=== PATIENT | female | born 1990 | race African-American/Black ===

== ENCOUNTER 2016-06-24 19:07 | Emergency (ER) | payer OTHER ==
[~2016-06-24] VITALS: Ht 154.9 cm; Wt 71.2 kg
[~2016-06-24 19:07] MED LIST: ADVAIR 100-501 EACH INH; ADVAIR 250-501 EACH IH; ALBUTEROL INH; CIPRO500 MG PO; CIPROFLOXACIN250 M2 OR; DEPO-PROVER150 MG/M1 IM; IBUPROFEN 800800 M1 PO; KEFLEX500 MG PO; LOESTRIN1 EAC1 PO; LORTABELXR PO; LUTERA1 EACH PO; PREDNISONE 20 M20 MG PO; PROVENTIL HFA6.7 G1 INH; UNKNOWN ANTIBIOTIC; VENTOLIN HFA 1818 GM INH; ZANTAC 150MG T150 MG PO; ZOFRAN ODT4 MG PO; ZOFRAN4 MG PO; ZPAK PO
[2016-06-24] MEDS ORDERED: MICROGESTIN 241 EACH PO (19:22)
[2016-06-24 19:41] LABS: HEMATOCRIT 40.3 % (37.0-47.0); HEMOGLOBIN 13.5 gm/dL (12.0-15.0); MCH 30.8 pg (26.0-34.0); MCHC 33.5 % (28.0-37.0); MCV 92.1 fL (80.0-100.0); PLATELET COUNT 329 thou/uL (150-400); RBC 4.37 mil/uL (4.20-5.00); RDW 13.3 % (10.5-14.5); WBC 13.7 thou/uL (4.0-11.0)
[2016-06-24 19:42] LABS: MANUAL DIFF YES
[2016-06-24 19:50] LABS: POTASSIUM 3.5 mmol/L (3.5-5.1)
[2016-06-24 20:06] LABS: ABSOLUTE NEUTROPHILS 11.4 thou/uL (1.4-8.2); TOTAL CELL COUNT 100
[2016-06-24 20:40] LABS: URINE BILIRUBIN NEGATIVE (Negative); URINE BLOOD 3+ (Negative); URINE COLOR YELLOW; URINE GLUCOSE-RANDOM* NEGATIVE (Negative); URINE KETONES NEGATIVE (Negative); URINE LEUKOCYTES-REFLEX TRACE (Negative); URINE PROTEIN (DIPSTICK) NEGATIVE (Negative); URINE UROBILINOGEN 0.2 E.U./dl (0.2-1.0)
[2016-06-24 20:47] LABS: CASTS None Seen /LPF (None Seen); SQUAMOUS 4-10 Moderate /LPF (0-3); URINE RBC 0-2 Rare /HPF (0-2); URINE WBC-REFLEX 0-5 Rare /HPF (0-5)
[2016-06-24 20:48] LABS: CRYSTALS None Seen /LPF (None Seen)
[2016-06-24] MEDS ORDERED: FLAGYL500 MG PO (21:25)
[2016-06-24] MEDS ORDERED: BENTYL 20 MG TA20 M1 PO (21:27)
[2016-06-24 21:42] VITALS: BP 116/71
[2016-06-27 13:07] LABS: CHLAMYDIA TRACHOMATIS-PCR Negative (Negative); NEISSERIA GONORRHEA-PCR Negative (Negative)
== END 2016-06-24 21:46 | disposition home or self-care (01) ==
LOC: ER 19:07
PROVIDERS: Physician Assistant
DX: N93.8 Other specified abnormal uterine and vaginal bleeding (principal); A59.9 Trichomoniasis, unspecified; J45.909 Unspecified asthma, uncomplicated; Z88.8 Allergy status to other drugs, medicaments and biological substances

== ENCOUNTER 2017-11-11 13:29 | Emergency (ER) | payer OTHER ==
[~2017-11-11] VITALS: Ht 154.9 cm; Wt 65.8 kg
[~2017-11-11 13:29] MED LIST changes: +BENTYL 20 MG TA20 M1 PO; +FLAGYL500 MG PO; +MICROGESTIN 241 EACH PO
[2017-11-11 14:31] LABS: URINE BILIRUBIN NEGATIVE (Negative); URINE BLOOD 1+ (Negative); URINE CLARITY HAZY; URINE COLOR YELLOW; URINE GLUCOSE-RANDOM* NEGATIVE (Negative); URINE KETONES NEGATIVE (Negative); URINE LEUKOCYTES 3+ (Negative); URINE NITRITE NEGATIVE (Negative); URINE PROTEIN (DIPSTICK) NEGATIVE (Negative); URINE SPECIFIC GRAVITY >= 1.030 (1.005-1.035); URINE UROBILINOGEN 0.2 E.U./dl (0.2-1.0)
[2017-11-11 14:39] LABS: SQUAMOUS >10 Many /LPF (0-3); URINE WBC >25 Many /HPF (0-5)
[2017-11-11 14:40] LABS: BACTERIA 1-9 Few /HPF (None Seen); CASTS None Seen /LPF (None Seen); URINE RBC 3-10 Few /HPF (0-2)
[2017-11-11 14:41] LABS: CRYSTALS None Seen /LPF (None Seen); MUCUS 4-6 Moderate strn/LPF (None Seen)
[2017-11-11] MEDS ORDERED: METROGEL-VAGINA70 GM VAG (16:04)
[2017-11-11 16:46] VITALS: BP 120/78
[2017-11-13 14:13] LABS: NEISSERIA GONORRHEA-PCR Negative (Negative)
== END 2017-11-11 16:47 | disposition home or self-care (01) ==
LOC: ER 13:29
PROVIDERS: Nurse Practitioner Family
DX: N76.0 Acute vaginitis (principal); J45.909 Unspecified asthma, uncomplicated; Z88.8 Allergy status to other drugs, medicaments and biological substances

== ENCOUNTER 2018-03-12 09:03 | Emergency (ER) | payer OTHER ==
[~2018-03-12] VITALS: Ht 154.9 cm; Wt 65.8 kg
[~2018-03-12 09:03] MED LIST changes: +METROGEL-VAGINA70 GM VAG
[2018-03-12 09:24] LABS: URINE BILIRUBIN NEGATIVE (Negative); URINE BLOOD 2+ (Negative); URINE CLARITY CLEAR; URINE COLOR YELLOW; URINE GLUCOSE-RANDOM* NEGATIVE (Negative); URINE KETONES NEGATIVE (Negative); URINE LEUKOCYTES-REFLEX NEGATIVE (Negative); URINE NITRITE-REFLEX NEGATIVE (Negative); URINE PROTEIN (DIPSTICK) NEGATIVE (Negative); URINE SPECIFIC GRAVITY 1.025 (1.005-1.035); URINE UROBILINOGEN 0.2 E.U./dl (0.2-1.0)
[2018-03-12 09:35] LABS: SQUAMOUS 4-10 Moderate /LPF (0-3)
[2018-03-12 09:36] LABS: BACTERIA-REFLEX 1-9 Few /HPF (None Seen); CASTS None Seen /LPF (None Seen); CRYSTALS None Seen /LPF (None Seen); URINE RBC 3-10 Few /HPF (0-2); URINE WBC-REFLEX 0-5 Rare /HPF (0-5)
[2018-03-12] MEDS ORDERED: VITAFOL-OB+DHA1 EACH PO (09:41)
[2018-03-12 09:50] VITALS: BP 115/70
== END 2018-03-12 09:52 | disposition home or self-care (01) ==
LOC: ER 09:03
PROVIDERS: Physician Assistant
DX: O26.891 Other specified pregnancy related conditions, first trimester (principal); R10.30 Lower abdominal pain, unspecified; J45.909 Unspecified asthma, uncomplicated; Z88.8 Allergy status to other drugs, medicaments and biological substances; Z98.890 Other specified postprocedural states; Z3A.01 Less than 8 weeks gestation of pregnancy

== ENCOUNTER 2018-03-15 09:17 | Emergency (ER) | payer OTHER ==
[~2018-03-15] VITALS: Ht 154.9 cm; Wt 65.8 kg
[~2018-03-15 09:17] MED LIST changes: +VITAFOL-OB+DHA1 EACH PO
[2018-03-15 09:41] LABS: URINE BILIRUBIN NEGATIVE (Negative); URINE BLOOD 1+ (Negative); URINE CLARITY SL CLOUDY; URINE COLOR YELLOW; URINE GLUCOSE-RANDOM* NEGATIVE (Negative); URINE KETONES NEGATIVE (Negative); URINE LEUKOCYTES-REFLEX NEGATIVE (Negative); URINE NITRITE-REFLEX NEGATIVE (Negative); URINE PROTEIN (DIPSTICK) NEGATIVE (Negative); URINE UROBILINOGEN 0.2 E.U./dl (0.2-1.0)
[2018-03-15 09:54] LABS: ABSOLUTE NEUTROPHILS 5.1 thou/uL (1.4-8.2); BASOPHILS 0.9 % (0.0-2.0); EOSINOPHILS 3.3 % (0.0-3.0); HEMATOCRIT 38.5 % (37.0-47.0); HEMOGLOBIN 13.3 gm/dL (12.0-15.0); LYMPHOCYTES 28.7 % (24.0-44.0); MCH 32.2 pg (26.0-34.0); MCHC 34.6 g/dL (28.0-37.0); MCV 92.9 fL (80.0-100.0); MONOCYTES 5.6 % (1.0-8.0); PLATELET COUNT 345 thou/uL (150-400); POLYS 61.5 % (36.0-66.0); RBC 4.15 mil/uL (4.20-5.00); RDW 13.2 % (10.5-14.5); WBC 8.2 thou/uL (4.0-11.0)
[2018-03-15 10:02] LABS: CREATININE 0.9 mg/dL (0.6-1.0); POTASSIUM 3.6 mmol/L (3.5-5.1)
[2018-03-15 10:06] LABS: CASTS None Seen /LPF (None Seen); CRYSTALS None Seen /LPF (None Seen); SQUAMOUS >10 Many /LPF (0-3); URINE RBC 0-2 Rare /HPF (0-2)
[2018-03-15 10:07] LABS: BACTERIA-REFLEX 1-9 Few /HPF (None Seen); URINE WBC-REFLEX 0-5 Rare /HPF (0-5)
[2018-03-15 10:08] LABS: ALBUMIN 3.4 g/dL (3.4-5.0); TOTAL BILIRUBIN 0.3 mg/dL (<0.1-1.0); TOTAL PROTEIN 7.1 g/dL (6.4-8.2)
[2018-03-15] MEDS ORDERED: KEFLEX500 M1 PO (11:50)
[2018-03-15] MEDS ORDERED: FLAGYL500 MG PO (11:50)
[2018-03-15 11:59] VITALS: BP 132/72
== END 2018-03-15 12:01 | disposition home or self-care (01) ==
LOC: ER 09:17
PROVIDERS: Physician Assistant
DX: O20.0 Threatened abortion (principal); O23.591 Infection of other part of genital tract in pregnancy, first trimester; O23.41 Unspecified infection of urinary tract in pregnancy, first trimester; J45.909 Unspecified asthma, uncomplicated; Z88.8 Allergy status to other drugs, medicaments and biological substances; Z98.890 Other specified postprocedural states; Z3A.01 Less than 8 weeks gestation of pregnancy

== ENCOUNTER 2018-03-18 22:11 | Emergency (ER) | payer OTHER ==
[~2018-03-18] VITALS: Ht 154.9 cm; Wt 65.8 kg
[~2018-03-18 22:11] MED LIST changes: +KEFLEX500 M1 PO
[2018-03-18 22:50] LABS: HEMATOCRIT 37.1 % (37.0-47.0); MCH 32.7 pg (26.0-34.0); MCHC 34.9 g/dL (28.0-37.0); MCV 93.7 fL (80.0-100.0); RBC 3.96 mil/uL (4.20-5.00); RDW 13.2 % (10.5-14.5); WBC 8.5 thou/uL (4.0-11.0)
[2018-03-18 22:57] LABS: CALCIUM 8.5 mg/dL (8.5-10.1); CREATININE 0.8 mg/dL (0.6-1.0); POTASSIUM 3.5 mmol/L (3.5-5.1)
[2018-03-19 01:28] VITALS: BP 99/66
== END 2018-03-19 01:34 | disposition home or self-care (01) ==
LOC: ER 22:11
PROVIDERS: Emergency Medicine
DX: O20.0 Threatened abortion (principal); Z3A.01 Less than 8 weeks gestation of pregnancy; O99.511 Diseases of the respiratory system complicating pregnancy, first trimester; J45.909 Unspecified asthma, uncomplicated

== ENCOUNTER 2018-05-23 23:16 | Emergency (ER) | payer BC, OTHER ==
[~2018-05-23] VITALS: Ht 154.9 cm; Wt 65.8 kg
[2018-05-24 01:35] VITALS: BP 137/83
== END 2018-05-24 01:36 | disposition home or self-care (01) ==
LOC: ER 23:16
DX: O26.892 Other specified pregnancy related conditions, second trimester (principal); O99.512 Diseases of the respiratory system complicating pregnancy, second trimester; Z3A.15 15 weeks gestation of pregnancy; R51 Headache; J45.909 Unspecified asthma, uncomplicated; Z98.890 Other specified postprocedural states; Z88.8 Allergy status to other drugs, medicaments and biological substances

== ENCOUNTER 2018-08-21 09:54 | Emergency (ER) | payer OTHER ==
[~2018-08-21] VITALS: Ht 152.4 cm; Wt 69.4 kg
[2018-08-21 09:55] VITALS: BP 107/59
[2018-08-21] MEDS ORDERED: AMOXICILLIN 50500 MG PO (10:14)
== END 2018-08-21 10:30 | disposition home or self-care (01) ==
LOC: ER 09:54
DX: O99.89 Other specified diseases and conditions complicating pregnancy, childbirth and the puerperium (principal); H66.92 Otitis media, unspecified, left ear; O26.893 Other specified pregnancy related conditions, third trimester; R09.81 Nasal congestion; O99.513 Diseases of the respiratory system complicating pregnancy, third trimester; J45.909 Unspecified asthma, uncomplicated; Z3A.28 28 weeks gestation of pregnancy; Z88.8 Allergy status to other drugs, medicaments and biological substances

== ENCOUNTER 2020-04-14 00:39 | Emergency (ER) | payer BC, OTHER ==
[~2020-04-14] VITALS: Ht 154.9 cm; Wt 69.8 kg
[~2020-04-14 00:39] MED LIST changes: +AMOXICILLIN 50500 MG PO
[2020-04-14 02:36] LABS: URINE BILIRUBIN NEGATIVE (Negative); URINE BLOOD NEGATIVE (Negative); URINE CLARITY CLEAR; URINE COLOR YELLOW; URINE GLUCOSE-RANDOM* NEGATIVE (Negative); URINE KETONES NEGATIVE (Negative); URINE LEUKOCYTES-REFLEX NEGATIVE (Negative); URINE NITRITE-REFLEX NEGATIVE (Negative); URINE PROTEIN (DIPSTICK) NEGATIVE (Negative); URINE UROBILINOGEN 0.2 E.U./dl (0.2-1.0)
[2020-04-14 02:49] LABS: ABSOLUTE NEUTROPHILS 5.4 thou/uL (1.4-8.2); BASOPHILS 0.6 % (0.0-2.0); HEMATOCRIT 42.2 % (37.0-47.0); HEMOGLOBIN 14.3 gm/dL (12.0-15.0); LYMPHOCYTES 8.2 % (24.0-44.0); MCH 32.4 pg (26.0-34.0); MCHC 33.9 g/dL (28.0-37.0); MCV 95.4 fL (80.0-100.0); MONOCYTES 5.9 % (1.0-8.0); PLATELET COUNT 316 thou/uL (150-400); POLYS 84.3 % (36.0-66.0); RBC 4.42 mil/uL (4.20-5.00); RDW 13.8 % (10.5-14.5); WBC 6.4 thou/uL (4.0-11.0)
[2020-04-14 02:58] LABS: ANION GAP 7 mmol/L (7-16); BUN 12 mg/dL (7-18); CALCIUM 8.6 mg/dL (8.5-10.1); CHLORIDE 101 mmol/L (98-107); CO2 30 mmol/L (21-32); GLUCOSE 105 mg/dL (74-106); SODIUM 138 mmol/L (136-145)
[2020-04-14 03:04] LABS: ALBUMIN 3.7 g/dL (3.4-5.0); DIRECT BILIRUBIN < 0.1 mg/dL (<0.1-0.2); SGOT 24 U/L (15-37); SGPT 30 U/L (30-65); TOTAL BILIRUBIN 0.3 mg/dL (0.2-1.0); TOTAL PROTEIN 7.6 g/dL (6.4-8.2)
[2020-04-14 04:13] VITALS: BP 92/57
== END 2020-04-14 04:15 | disposition home or self-care (01) ==
LOC: ER 00:39
PROVIDERS: Emergency Medicine
DX: E86.0 Dehydration (principal); J45.909 Unspecified asthma, uncomplicated; Z79.899 Other long term (current) drug therapy; Z79.2 Long term (current) use of antibiotics; Z88.8 Allergy status to other drugs, medicaments and biological substances; Z20.828 Contact with and (suspected) exposure to other viral communicable diseases

== ENCOUNTER 2020-11-24 16:57 | Emergency (ER) | payer BC, OTHER ==
[~2020-11-24] VITALS: Ht 154.9 cm; Wt 72.6 kg
[2020-11-24 18:00] VITALS: BP 125/70
== END 2020-11-24 18:00 | disposition home or self-care (01) ==
LOC: ER 16:57
DX: Z32.01 Encounter for pregnancy test, result positive (principal)

== ENCOUNTER 2021-03-03 14:15 | Emergency (ER) | payer BC, OTHER ==
[~2021-03-03] VITALS: Ht 154.9 cm; Wt 73.5 kg
[2021-03-03 14:47] VITALS: BP 118/75
[2021-03-03 17:27] LABS: HEMATOCRIT 42.7 % (37.0-47.0); HEMOGLOBIN 14.3 gm/dL (12.0-15.0); MCH 31.9 pg (26.0-34.0); MCHC 33.5 g/dL (28.0-37.0); MCV 95.2 fL (80.0-100.0); RBC 4.48 mil/uL (4.20-5.00); RDW 13.2 % (10.5-14.5); WBC 5.4 thou/uL (4.0-11.0)
[2021-03-05] MEDS ORDERED: DOXYCYCLINE 10100 MG PO (07:57)
== END 2021-03-03 18:43 | disposition home or self-care (01) ==
LOC: ER 14:15
PROVIDERS: Nurse Practitioner Family
DX: N92.0 Excessive and frequent menstruation with regular cycle (principal); J45.909 Unspecified asthma, uncomplicated; Z98.890 Other specified postprocedural states; Z79.51 Long term (current) use of inhaled steroids; Z79.899 Other long term (current) drug therapy; Z88.8 Allergy status to other drugs, medicaments and biological substances

== ENCOUNTER 2021-04-14 18:06 | Emergency (ER) | payer BC, OTHER ==
[~2021-04-14] VITALS: Ht 152.4 cm; Wt 73.9 kg
[~2021-04-14 18:06] MED LIST changes: +DOXYCYCLINE 10100 MG PO
[2021-04-14] MEDS ORDERED: QVAR REDIHALE10.6 GM INH (18:31)
[2021-04-14 18:41] LABS: URINE BILIRUBIN NEGATIVE (Negative); URINE BLOOD 1+ (Negative); URINE CLARITY CLEAR; URINE COLOR YELLOW; URINE GLUCOSE-RANDOM* NEGATIVE (Negative); URINE KETONES NEGATIVE (Negative); URINE LEUKOCYTES-REFLEX NEGATIVE (Negative); URINE NITRITE-REFLEX NEGATIVE (Negative); URINE PROTEIN (DIPSTICK) NEGATIVE (Negative); URINE UROBILINOGEN 0.2 E.U./dl (0.2-1.0)
[2021-04-14 19:33] LABS: BACTERIA-REFLEX 1-9 Few /HPF (None Seen); CASTS None Seen /LPF (None Seen); CRYSTALS None Seen /LPF (None Seen); SQUAMOUS 4-10 Moderate /LPF (0-3); URINE RBC 1-2 Rare /HPF (NONE SEEN); URINE WBC-REFLEX 0-5 Rare /HPF (0-5)
[2021-04-14 19:40] LABS: HEMATOCRIT 39.4 % (37.0-47.0); HEMOGLOBIN 13.4 gm/dL (12.0-15.0); MCH 31.8 pg (26.0-34.0); MCHC 33.9 g/dL (28.0-37.0); MCV 93.7 fL (80.0-100.0); RBC 4.2 mil/uL (4.20-5.00); RDW 13.5 % (10.5-14.5); WBC 6.8 thou/uL (4.0-11.0)
[2021-04-14 19:48] LABS: CREATININE 0.9 mg/dL (0.6-1.0); POTASSIUM 3.5 mmol/L (3.5-5.1)
[2021-04-14 21:35] VITALS: BP 132/89
== END 2021-04-14 21:36 | disposition home or self-care (01) ==
LOC: ER 18:06
PROVIDERS: Nurse Practitioner Family
DX: O20.0 Threatened abortion (principal); Z3A.01 Less than 8 weeks gestation of pregnancy; J45.909 Unspecified asthma, uncomplicated; Z98.890 Other specified postprocedural states; Z79.51 Long term (current) use of inhaled steroids; Z79.899 Other long term (current) drug therapy; Z88.8 Allergy status to other drugs, medicaments and biological substances

== ENCOUNTER 2021-06-03 01:43 | Emergency (ER) | payer BC, OTHER ==
[~2021-06-03] VITALS: Ht 154.9 cm; Wt 73.9 kg
[~2021-06-03 01:43] MED LIST changes: +QVAR REDIHALE10.6 GM INH
[2021-06-03 04:24] VITALS: BP 108/69
--- NOTE | 2021-06-04 15:07 | PATH ---
[facility] [address] [address] PATHOLOGY RPT PROCEDURE Name: KEVIN ORTIZ HAMLET Room #: DEP ANIL Jennings#: [id number] Admission: 06/03/21 Date of : 88 Discharge: 06/03/21 Report #: [id number] Path Case #: [id number] [facility] Accession Number: [id number] . 01 Material submitted: . placenta - PLACENTA . 01 Clinical history: . BLEEDING VAGINAL . 01 Diagnosis: Uterine contents, "placenta": - Acutely inflamed and hemorrhagic decidual tissue with foci of necrosis admixed with chorionic villi consistent with products of conception. - No obvious umbilical cord or products identified. . (See comment) . (LATASHA:regi; 06/04/2021) [facility] 06/04/2021 1429 Local . 01 Comment: Suggest clinical correlation. . (LATASHA:mml; 06/04/2021) . 01 Electronically signed: . Franck Espinosa MD, Pathologist NPI- [id number] . 01 Gross description: . The specimen is received in formalin, labeled "Kevin Ortiz" and no specimen ID, however the requisition designates the specimen as "placenta". The specimen consists of a 17 g shaggy irregular possible placental disc (8.5 x 5.8 x 1.5 cm) with altman-terrazas and hemorrhagic thickened possible placental membranes that form an intact gestational sac containing a minimal amount of thickened pale yellow to pink gelatinous material. The completeness of the placental disc cannot definitively be determined. No umbilical cord, parts or umbilical cord insertion site is identified. No hydropic villi are identified. The proposed surface is purple-altman and slightly lobular. The maternal surface is red-brown, shaggy and disrupted. Sectioning reveals red spongy, thin parenchyma. [employer] Specialist sections are submitted as follows: A1-A2: membranes, represented A3-A4: Full thickness sections of placental disc, represented ([place]; 06/03/2021) [facility] 06/03/[address] [address] PATHOLOGY RPT PROCEDURE Name: KEVIN ORTIZ [facility] Room #: DEP ANIL Jennings#: [id number] Admission: 06/03/21 Date of : 88 Discharge: 06/03/21 Report #: [id number] Path Case #: [id number] . 01 Pathologist provided ICD-10: N93.9 . 01 CPT . 160946 Specimen Comment: A courtesy copy of this report has been sent to [phone] Specimen Comment: Report sent to Performed at: [address], [place], [place] [id number] MD Franck Espinosa MD Phone: [phone]
== END 2021-06-03 04:25 | disposition home or self-care (01) ==
LOC: ER 01:43
DX: O03.4 Incomplete spontaneous abortion without complication (principal); J45.909 Unspecified asthma, uncomplicated; Z3A.01 Less than 8 weeks gestation of pregnancy; Z98.890 Other specified postprocedural states; Z79.51 Long term (current) use of inhaled steroids; Z79.899 Other long term (current) drug therapy; Z88.1 Allergy status to other antibiotic agents